=== PATIENT | female | born 1970 | race Caucasian/White ===

== ENCOUNTER → 2021-10-10 | Outpatient (CLI) | payer OTHER | END | disposition home or self-care (01) | LOC: LABWHC1 12:34 | PROVIDERS: ATTEND Family Medicine | DX: Z53.9 Procedure and treatment not carried out, unspecified reason (principal) ==

== ENCOUNTER → 2021-10-10 | Outpatient (CLI) | payer OTHER ==
[2021-10-10 13:52] LABS: INR 0.9 (<1.2); Partial Thromboplastin Time 22.1 sec (22.0-30.0); Prothrombin Time 10.4 sec (9.0-12.0)
[2021-10-10 18:34] LABS: Basophils # (A) 0.03 X 10*3/uL (0.00-0.10); Basophils % (A) 0.3 %; Eosinophils # (A) 0.04 X 10*3/uL (0.04-0.35); Eosinophils % (A) 0.4 %; HCT 43.5 % (37.2-46.3); HGB 14.1 g/dL (12.0-15.0); Immature Grans, Automated 0.4 %; Lymphocytes % (A) 16.5 %; MCH 32.3 pg (27.0-32.0); MCHC 32.4 g/dL (32.0-37.0); MCV 99.5 fL (80.0-97.0); Monocytes # (A) 0.77 X 10*3/uL (0.20-1.00); Monocytes % (A) 7.9 %; NRBC Per 100 WBC 0 /100 WBCS (0.0-0.0); Neutrophils # (A) 7.21 X 10*3/uL (1.80-7.70); Neutrophils % (A) 74.5 %; Platelet Count 239 X 10*3/uL (140-440); RBC 4.37 X 10*6/uL (4.10-5.20); WBC 9.69 X 10*3/uL (4.50-10.00)
[2021-10-10 18:38] LABS: ALT 18 U/L (8-44); AST 17 U/L (13-35); African American GFR (CKD) 98.9 (60.0-200.0); Albumin 4.6 g/dL (3.8-4.9); Albumin/Globulin Ratio 2.19 (1.60-3.17); Alkaline Phosphatase 44 U/L (41-126); BUN/Creat Ratio 17.38 Ratio (12.00-20.00); Blood Urea Nitrogen 13.9 mg/dL (9.0-27.0); Calcium 9.4 mg/dL (8.7-10.3); Carbon Dioxide 19.8 mmol/L (20.0-27.5); Chloride 107 mmol/L (96-109); Chol/HDL Ratio 2.74 Ratio; Globulin 2.1 g/dL (1.6-3.3); Glucose 89 mg/dL (70-110); LDL Cholesterol,Calculated 98.9 mg/dL (0.0-131.0); Non-African American GFR(CKD) 85.4 (60.0-200.0); Potassium 3.7 mmol/L (3.5-5.5); Sodium 140 mmol/L (135-145); Total Protein 6.7 g/dL (6.2-8.2); VLDL Calculation 14.84 mg/dL (5.00-40.00)
[2021-10-10 20:07] LABS: Appearance,Urine Clear (Clear); Bilirubin,Urine Negative (Negative); Blood,Urine Moderate (Negative); Color,Urine Yellow (Yellow); Ketones,Urine 15 mg/dL (Negative); Nitrite,Urine Negative (Negative); Specific Gravity,Urine 1.021 (1.001-1.030); Urobilinogen,Urine 0.2 (0.2,1.0)
[2021-10-10 21:25] LABS: Bacteria,Urine 3+ /HPF (None Seen)
== END | disposition home or self-care (01) ==
LOC: LABPAT 12:32
PROVIDERS: ATTEND Orthopaedic Surgery Orthopaedic Surgery of the Spine
DX: Z01.812 Encounter for preprocedural laboratory examination (principal)
CPT/HCPCS: 80053; 80061; 81001; 85025; 85610; 85730; 86803; 87070; 93005

== ENCOUNTER → 2021-10-14 | Outpatient (CLI) | payer OTHER ==
[2021-10-14 17:03] LABS: Appearance,Urine Clear (Clear); Bilirubin,Urine Negative (Negative); Blood,Urine Small (Negative); Color,Urine Yellow (Yellow); Ketones,Urine Negative (Negative); Nitrite,Urine Negative (Negative); Urobilinogen,Urine 0.2 (0.2,1.0)
[2021-10-14 17:43] LABS: Bacteria,Urine 3+ /HPF (None Seen); Calcium Oxalate Crystals,Urine Present /LPF (None Seen)
--- NOTE | 2021-10-15 06:55 | XR ---
EXAMINATION TYPE: XR chest 2V DATE OF EXAM: 10/14/2021 COMPARISON: None HISTORY: Preop surgery TECHNIQUE: Frontal and lateral views of the chest are obtained. FINDINGS: The lungs are clear. There is no pleural effusion or pneumothorax. The heart size is mildly prominent. The pulmonary vasculature is not congested. The osseous structures are intact IMPRESSION: Mild cardiomegaly with no acute cardiopulmonary disease.
== END | disposition home or self-care (01) ==
LOC: RADXRMAIN 08:10
PROVIDERS: ATTEND Orthopaedic Surgery Orthopaedic Surgery of the Spine
DX: Z01.812 Encounter for preprocedural laboratory examination (principal); N39.0 Urinary tract infection, site not specified; I51.7 Cardiomegaly
CPT/HCPCS: 71046; 81001

== ENCOUNTER 2021-10-16 10:51 | Observation (INO) | payer OTHER ==
[~2021-10-16 10:51] MED LIST: ceFAZolin 1,000 MG in SODIUM CHLORIDE 0.9% IRRIGATIO 1,000 ML IRRIGATION PRN
[2021-10-16] MEDS ORDERED: ONDANSETRON 4 MG/2 ML VIAL ONE (11:47)
[2021-10-16] MEDS ORDERED: LACTATED RINGERS 1,000 ML IV ONE ×3 (12:03→16:50)
[2021-10-16] MEDS ORDERED: LIDOCAINE 1% (10MG/ML) FOR IV START INTRADERMA ONE (12:04)
[2021-10-16] MEDS ORDERED: ONDANSETRON 4 MG/2 ML VIAL IVP ONE ×2 (12:04→17:50)
[2021-10-16] MEDS ORDERED: PROPOFOL 10 MG/ML 20 ML VIAL IV ONE (12:50)
[2021-10-16] MEDS ORDERED: HYDROmorphone (PF) 1 MG/ML ONE (12:50)
[2021-10-16] MEDS ORDERED: ROCURONIUM 10 MG/ML (5 ML VIAL) IV ONE (12:50)
[2021-10-16] MEDS ORDERED: SUCCINYLCHOLINE CHLORIDE 100 MG/5 ML SYR IV ONE (12:50)
[2021-10-16] MEDS ORDERED: MIDAZOLAM 2 MG/2 ML VIAL ONE (12:50)
[2021-10-16] MEDS ORDERED: LIDOCAINE 2% INJ 20 MG/ML (2 ML VIAL) ONE (12:50)
[2021-10-16] MEDS ORDERED: SODIUM CHLORIDE 0.9% IRRIG 1,000 ML BTL IRRIGATION ONE (12:50)
[2021-10-16] MEDS ORDERED: HEPARIN SODIUM,PORCINE 10,000 UNIT/ML 1 ML VIAL ONE (12:50)
[2021-10-16] MEDS ORDERED: KETAMINE 10 MG/ML 20 ML VIAL ONE (12:50)
[2021-10-16] MEDS ORDERED: fentaNYL (PF) 50 MCG/ML 2 ML AMP ONE (12:50)
[2021-10-16] MEDS ORDERED: LEVOFLOXACIN 500MG-D5W PMX 500 MG in DEXTROSE/WATER 1 100ML.BAG IVPB STA (13:00)
[2021-10-16] MEDS ORDERED: traMADol 50 MG TAB PO PRN (13:02)
[2021-10-16] MEDS ORDERED: ACETAMINOPHEN TAB 500 MG TAB PO PRN (13:02)
[2021-10-16] MEDS ORDERED: NON FORMULARY DRUG (Medroxyprogesterone Acetate [Depo-Provera] 150 MG/ML Each) IM SCH (13:15)
[2021-10-16] MEDS ORDERED: BUPIVACAIN-EPI 0.25%-1:200,000 30 ML VIAL SQ ONE (13:27)
[2021-10-16] MEDS ORDERED: GELATIN SPONGE,ABSORB (LARGE) 1 EACH SPONGE MISCELLANE ONE (13:43)
[2021-10-16] MEDS ORDERED: THROMBIN (BOVINE) 5,000 UNIT VIAL MISCELLANE ONE (13:43)
[2021-10-16] MEDS ORDERED: HYDROmorphone 0.5 MG/0.5 ML SYRINGE IVP PRN (17:25)
[2021-10-16] MEDS ORDERED: BENZOCAINE/MENTHOL LOZENG 1 EACH LOZENGE MUCOUS MEM PRN (17:25)
[2021-10-16] MEDS ORDERED: ONDANSETRON 4 MG/2 ML VIAL IVP PRN (17:26)
--- NOTE | 2021-10-16 17:33 | P.OP ---
Date of Procedure: 10/16/21 Preoperative Diagnosis: Dynamic spondylolisthesis L4 5 L5-S1, low back pain, lower extremity radiculopathy, degenerative disc disease, facet arthrosis Postoperative Diagnosis: Same Anesthesia: GETA Pathology: none sent Condition: stable Description of Procedure: DESCRIPTION OF PROCEDURE(S): BRIEF OPERATIVE NOTE Preoperative Diagnosis: Dynamic spondylolisthesis L4 5 L5-S1, low back pain, lower extremity radiculopathy, degenerative disc disease, facet arthrosis Postoperative Diagnosis: Same Procedure: Laminectomy and decompression L4 5 L5-S1 Computer CT navigation aided Minimally invasive Posterior lateral decompression and facet fusion L4 5 L5-S1 Minimally invasive Transforaminal lumbar interbody fusion for a 360 fusion L4 5 L5-S1 Discectomy for decompression L4 5 L5-S1 Placement of interbody graft L4 5 L5-S1 Use of computer navigation for fusion Local autogenous bone grafting Aspiration of bone marrow from the vertebral body pedicle of L4 on the right Use of bone graft extenders Surgeon: Dr. Jha Filenet P8 Developer: Saulo NELSON who is present throughout the entire the case persistence during positioning, dissection, exposure, visualization, and all crucial elements of the case as well as closure. Anesthesia: General anesthesia per Estimated blood loss: Approximately 350 mL, with 137 given back through [employer] Complications: None apparent Components implanted: K2M minimally invasive [place] pedicle screw system withscrews measuring 6.5 mm in diameter to rods one [place] interbody cage as well as an expandable interbody cage ten to 13 mm with 10 mL of osteo amp bio4 bone graft substitute and 30 mL of the BX bone fibers to supplement the local autogenous bone graft and bone marrow aspirate Disposition: To recovery room in good stable condition. OPERATIVE INDICATIONS The patient has had severe issues at their lower extremity in her lower back over the past several years with significant worsening over the past several months. Over the past few months the patient had pain at their back and their lower extremities. The patient is having severe radicular symptoms at their lower extremity with weakness. The patient is having significant pain in their back. They are unable to obtain any comfort. We did aggressive conservative treatment with medications therapy and interventional pain management however thery were not having any relief. The patient also showed evidence of a listhesis with some dynamic instability particularly at L4 5 but also L5-S1. The patient has been through conservative treatment. We discussed various treatment options including surgery, and the patient wishes to proceed with surgery We discussed the risk, patient's alternatives and benefits of surgery including but not limited to, risk of bleeding risk of infection, risk of need for further surgery, risk of decreased, loss of motion, muscle function, malunion nonunion, hardware failure, nerve damage, paralysis, heart attack, blindness and . They understood issues with the current pandemic and the possibility of exposure. OPERATIVE SUMMARY After discussing all the risks, patient alternatives and benefits at length, the patient elected to proceed with surgical intervention, signed informed consent, and presented for their procedure. The patient was seen and examined in the preoperative holding area and the surgical site was marked. The patient was given antibiotics and brought to the operating room. The patient was sedated and intubated by anesthesia in standard fashion. The patient was positioned on to the operating room table in a prone position on the appropriate frame which was well-padded and well molded. We were careful to pad any bony prominences and pressure points. We were careful to maintain the patient's cervical spine and good neutral alignment and position throughout. The patient was prepped and draped in a normal standard fashion. An appropriate timeout and keystone protocol performed. We were able to proceed with the surgery. The local wound area was infiltrated with local anesthetic. Over the right iliac crest I was able to make small stab incisions and establish a guidepin screw fixation to the iliac crest 2. I was able place the computer referencing device over the guidepins to establish an appropriate reference point for the Ziem CT navigation. We then were able to place patient in an appropriate drape and do a navigation spin for visualization and 3-D reconstruction of the lumbar spine. I was able utilize C-arm guidance and navigation to establish appropriate position over the pedicles bilaterally at the appropriate levels at L4-L5 and S1 . With the appropriate levels confirmed was able to make small incisions over the appropriate pedicle sites bilaterally. Utilizing the computer navigation device I was able to establish b herber landmarks at the right iliac crest for a bony reference point for the navigation device. I was able to establish a Jamshidi needle over the lateral aspect of the pedicle and advanced the trocar into the pedicle being careful not to breech superiorly inferiorly medially or laterally using computer navigation device. Position was confirmed regularly with AP and lateral images on C-arm and with the computer navigation device at the appropriate levels bilaterally. I was able to establish the trocar into the pedicle appropriately into the posterior aspect of the vertebral body bilaterally at the appropriate levels. This was done at each of the pedicle positions and each of the vertebrae. At the superior vertebrae of L4 on the right I was able to take approximately 25 mL of bone aspiration for use later in the case to supplement the allograft and autograft bone. I was able place the guidewire into the trocar and into the vertebral body appropriately under C-arm guidance. Dissection was taken down over the wire to the appropriate starting position for the screw placed. The appropriate length screw was chosen, threaded over the guidewire and screwed appropriately into the pedicle and vertebral body under C-arm guidance in excellent alignment and position with good bony purchase. This is done at each of the screw sites at the appropriate levels at L4-L5 and S1. With the screws intact I extended the incision to connect the screw hole sites on the most symptomatic side on the right. I dissected down to establish access over the pars and lamina to the base of the spinous process. I was able to expose the facet joint. The capsule the facet was taken down and showed some facet arthrosis at the joint. I was able to use a combination of curettes and Kerrison rongeurs and a high-speed drill to take down the facet joint and do a facetectomy. I was able get excellent foraminal decompression and central decompression with undermining across midline to perform a laminectomy centrally and contralaterally. As able get good central decompression. The ligamentum flavum was taken down to further decompress centrally and at bilateral neural foramen. I was able to expose the disc space and visualize the traversing nerve root. Note was made of some disc protrusion and disc herniation that was abutting the traversing nerve root at the level causing further compression of the nerve root. I was able to establish a annulotomy at the appropriate level protecting soft tissue and neural structures. Note was made of some disc desiccation at the disc. I performed a complete discectomy with accommodation of curettes and rasps and scrapers. I was able get good endplate preparation at the disc space. I sized for the appropriate size interbody spacer protecting the soft tissue and neural structures. The wound was copiously irrigated and suctioned dry. There is no evidence of any dural tear or leak. I was able to pack the disc space with local autogenous bone graft as well as a small amount of bone graft which was also placed into the interbody cage itself. Protecting the soft tissue structures and neural structures I was able place the interbody cage in good alignment and good position with good fit and fill at the interbody space. Position was confirmed with C-arm guidance. This was done similarly at both L5-S1 and the L4 5. He is a solid cage at L5-S1 and an expandable cage and L4 5. I was able get good reduction of the listhesis as well. Good hemostasis maintained. There is no evidence of any dural tear or leak. The wound was irrigated and suctioned dry. With the hardware intact, intraoperative C-arm imaging was again taken which showed good alignment and position of the hardware at the appropriate levels. We were then able to measure, contour and place the rods and appropriate hardware bilaterally. I was able to place capcrews, tighten them down, and torque them with the torque screwdriver appropriately. With this intact I was able to place the local autogenous bone graft with additional bone graft enhancer as necessary into the posterior lateral gutters over the decorticated transverse processes and facet joints on the contralateral side. The remainder of the bone graft was placed over the facet joint on the contralateral side after taking down the facet joint capsule. With the bone graft intact, a stable construct, and good decompression at the appropriate levels, we were able to proceed with closure. Good hemostasis was maintained. There is no evidence of dural tear or leak. The fascia was closed for a watertight closure. he subcuticular tissue was closed with absorbable suture. The wound was cleaned and dried and dressed with the appropriate dressing. The drapes were broken down. The patient was gently rolled back onto their hospital bed being careful to maintain their cervical spine and good neutral alignment and position. They were woken up by anesthesia, extubated, and brought to the recovery room in good stable condition. The patient will be admitted to the hospital for appropriate postoperative care, medical management and monitoring. We will continue to follow them closely a bout the postoperative course.
[2021-10-16] MEDS ORDERED: HYDROmorphone 0.5 MG/0.5 ML SYRINGE IVP ONE ×3 (17:52→18:05)
[2021-10-16] MEDS: HYDROmorphone 1 MG/ML 1 ML SYRINGE IVP PRN (19:54)
[2021-10-16] MEDS: SODIUM CHLORIDE 0.9% 1,000 ML IV SCH (21:15)
--- NOTE | 2021-10-16 21:15 | FL ---
EXAMINATION TYPE: FL guidance operating room DATE OF EXAM: 10/16/2021 CLINICAL HISTORY: Low back pain. TECHNIQUE: Fluoroscopy. Intraoperative 2 views lumbar spine. COMPARISON: None. FINDINGS: Fluoroscopic guidance was provided during lumbar fusion procedure performed by Dr. Jha. A total of 13 seconds of fluoroscopic time was utilized during the procedure and 2 spot intraoperati ve images are acquired. Intraoperative images obtained show placement of posterior interpedicular rods and screws bilaterally at L4-S1 levels. Images are underpenetrated making evaluation suboptimal. IMPRESSION: As Above.
[2021-10-16] MEDS: HYDROcodone/APAP 5-325MG 1 EACH TAB PO PRN (21:23)
[2021-10-16] MEDS: diazePAM 5 MG TAB PO PRN (21:24)
--- NOTE | 2021-10-16 21:46 | P.CONS ---
History of Present Illness - Reason for Consult Consult date: 10/16/21 Medical management Requesting physician: Enma Jha - Chief Complaint Back pain - History of Present Illness This is a pleasant 51-year-old patient follows with Dr. Willow argueta. Chronic stable medical conditions include history of blood clot in the right thigh for which patient takes anticoagulation, chronic lumbar pain. Arthritis. Patient's had lower backs pain symptoms for close to 3 years. Does radiate down the right leg. No bowel or urine symptoms. Patient's tried conservative measures including epidural pain procedures. Patient underwent laminectomy and decompression and discectomy and L4-L5/L5-S1. Postprocedure patient laying in bed. Cook catheter. Pain medications in place. No nausea vomiting. Xarelto is to be resumed from tomorrow morning. Review of systems: GEN.: None EYES: None HEENT: None NECK: None RESPIRATORY: None CARDIOVASCULAR: None GASTROINTESTINAL: None GENITOURINARY: Cook MUSCULOSKELETAL: As above LYMPHATICS: None HEMATOLOGICAL: None PSYCHIATRY: None NEUROLOGICAL: None Past medical history to include: DVD, osteoarthritis, blood clot of the right thigh, Social history: Alcohol occasionally. No smoking. . 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 Family history: DVT Physical examination: VITAL SIGNS: 97.5, 63, 16, 129-77, 100% on 2 L GENERAL: BMI 30.1, laying in bed not in distress. EYES: Pupils equal. Conjunctiva normal. HEENT: External appearance of nose and ears normal, oral cavity grossly normal. NECK: JVD not raised; masses not palpable. HEART: First and second heart sounds are normal; no edema. LUNGS: Respiratory rate normal; clear to auscultation. ABDOMEN: Soft, nontender, liver spleen not palpable, no masses palpable.. Cook catheter PSYCH: Alert and oriented x3; mood and affect normal. MUSCULOSKELETAL:No Clubbing/cyanosis;muscles-grossly intact. Dressing over incision site NEUROLOGICAL: Cranial nerves grossly intact; no facial asymmetry, power and sensation grossly intact. LYMPHATICS: No lymph nodes palpable in the axilla and neck Assessment and plan: -Dynamic spondylolisthesis L4-L5/L5-S1/low back pain/lower extremity radiculopathy/DJD/facet arthrosis. Followed by laminectomy and decompression discectomy IV Ancef for infection prophylaxis. [place] 5 for pain control/Dilaudid when necessary for pain control. -Chronic right thigh DVT Resume xarelto in the morning as per Dr. Cool -Obesity BMI 30.1 Weight loss measures Home medications and resume. Xarelto will start tomorrow morning. Venodyne boots. Pain control in place. IV fluids. Diet advanced as tolerated. Care was discussed with the patient. Questions answered. Thank you Dr. Jha Past Medical History Past Medical History: Deep Vein Thrombosis (DVT), Musculoskeletal Disorder, Osteoarthritis (OA) Additional Past Medical History / Comment(s): blood clots right thigh History of Any Multi-Drug Resistant Organisms: None Reported Additional Past Surgical History / Comment(s): epidural pain procedures Past Anesthesia/Blood Transfusion Reactions: Previous Problems w/ Anesthesia Additional Past Anesthesia/Blood Transfusion Reaction / Comm: headache after epidural pain procedure Smoking Status: Never smoker - Past Family History Father Family Medical History: Deep Vein Thrombosis (DVT) Medications and Allergies Home Medications Medication Instructions Recorded Confirmed Type Acetaminophen [Tylenol Extra 500 mg PO Q6H PRN 10/12/21 10/16/21 History Strength] Medroxyprogesterone Acetate 150 mg IM Q90D 10/12/21 10/16/21 History [Depo-Provera] Rivaroxaban [Xarelto] 20 mg PO DAILY 10/12/21 10/16/21 History traMADol HCL [Ultram] 50 mg PO Q6HR PRN 10/12/21 10/16/21 History Allergies Allergy/AdvReac Type Severity Reaction Status Date / Time Penicillins AdvReac Unknown Verified 10/16/21 11:44 Childhood Physical Exam Vitals: Vital Signs Temp Pulse Pulse Resp BP BP Pulse Ox 10/16/21 20:15 100 10/16/21 19:52 97.5 F L 63 16 129/77 100 10/16/21 18:46 98.1 F 66 14 131/72 100 10/16/21 17:50 59 L 16 127/73 100 10/16/21 17:35 96.9 F L 60 16 127/73 100 10/16/21 11:43 97.3 F L 76 16 139/79 96 Intake and Output 10/16/21 10/16/21 10/16/21 06:59 14:59 22:59 Intake Total 2050 100 Output Total 5 Balance 2050 Intake: IV 2050 100 Output: Urine 525 Estimated Blood Loss 350 Other: Weight 95.3 kg
--- NOTE | 2021-10-16 23:33 | XR ---
EXAMINATION TYPE: XR lumbar spine 2 or 3V DATE OF EXAM: 10/16/2021 CLINICAL HISTORY: Lumbar fusion TECHNIQUE: Fluoroscopic-guided lumbar fusion COMPARISON: None. FINDINGS: Fluoroscopic guidance was provided during the procedure. A total of 13 seconds of fluorosc opic time was utilized during the procedure and 2 spot images were acquired. IMPRESSION: As Above.
[2021-10-17] MEDS: HYDROmorphone 1 MG/ML 1 ML SYRINGE IVP PRN ×4 (02:21→17:30)
[2021-10-17] MEDS: SODIUM CHLORIDE 0.9% 1,000 ML IV SCH (05:21)
[2021-10-17] MEDS: HYDROcodone/APAP 5-325MG 1 EACH TAB PO PRN ×4 (05:23→21:24)
[2021-10-17] MEDS: diazePAM 5 MG TAB PO PRN ×2 (05:23→12:19)
[2021-10-17] MEDS: RIVAROXABAN 20 MG TAB PO SCH (09:07)
[2021-10-17] MEDS: CYCLOBENZAPRINE 10 MG TAB PO PRN ×2 (09:09→15:52)
[2021-10-17] MEDS: SENNOSIDES-DOCUSATE SODIUM 1 EACH TAB PO SCH (09:09)
[2021-10-17 09:30] LABS: African American GFR (CKD) 100.5 (60.0-200.0); Anion Gap 10.2 mmol/L (10.00-18.00); BUN/Creat Ratio 12.53 Ratio (12.00-20.00); Blood Urea Nitrogen 9.9 mg/dL (9.0-27.0); Calcium 8.4 mg/dL (8.7-10.3); Carbon Dioxide 22.7 mmol/L (20.0-27.5); Non-African American GFR(CKD) 86.7 (60.0-200.0); Potassium 3.8 mmol/L (3.5-5.5)
[2021-10-17 10:04] LABS: Basophils # (A) 0.02 X 10*3/uL (0.00-0.10); Basophils % (A) 0.2 %; Eosinophils # (A) 0.03 X 10*3/uL (0.04-0.35); Eosinophils % (A) 0.3 %; HCT 35.8 % (37.2-46.3); HGB 11.6 g/dL (12.0-15.0); Immature Grans, Automated 0.5 %; Lymphocytes # (A) 1.44 X 10*3/uL (0.90-5.00); Lymphocytes % (A) 15.2 %; MCH 32.4 pg (27.0-32.0); MCHC 32.4 g/dL (32.0-37.0); Mean Platelet Volume 9.6 fL (9.5-12.2); Monocytes # (A) 0.99 X 10*3/uL (0.20-1.00); Monocytes % (A) 10.5 %; NRBC Per 100 WBC 0 /100 WBCS (0.0-0.0); Neutrophils # (A) 6.94 X 10*3/uL (1.80-7.70); Neutrophils % (A) 73.3 %; Platelet Count 175 X 10*3/uL (140-440); RBC 3.58 X 10*6/uL (4.10-5.20); RDW 12.8 % (11.5-14.5); WBC 9.47 X 10*3/uL (4.50-10.00)
--- NOTE | 2021-10-17 11:19 | P.PN ---
Progress Note - Text Progress Note Date: 10/17/21 Orthopedic Spine History of present illness: Patient is a pleasant 51-year-old female who is seen and examined at the bedside following posterior lateral decompression and fusion performed yesterday. Patient states they are doing well post operatively. She had a rough time last night but has been improving so far today. She has been able to ambulate to the restroom and ambulate the hallways. Her lower extremity radiculopathy she was experiencing prior to surgical intervention has had significant improvement. She does have some increased low back pain at the surgical sites of her lumbar spine. She continues to receive IV and oral medications for pain control. Currently does not complain of nausea, vomiting, fever, or chills. Patient states pain has been adequately controlled. Patient is eating and voiding freely without difficulty. Her Cook catheter has been discontinued. Patient is ambulating with assistance of a walker Physical Exam Lumbar Fusion: Status post surgical day number 1 Patient is awake, alert, and oriented 3 Vital signs stable Good chest excursion with deep inspiration and expiration Abdomen soft nontender Dorsiflexion, plantarflexion, and extensor hallucis longus positive sustained bilaterally No signs or symptoms of DVT; pneumatic cuffs not currently intact bilateral lower extremities Optifoam dressings are clean, dry, and intact over the lumbar spine and right iliac crest; no erythema, purulence, or signs of infection Neurovascularly intact bilaterally lower extremities Patient is able to ambulate in the room with the assistance of a walker while I am present Assessment: Status post L4-5 and L5-S1 minimally invasive posterior lateral decompression and fusion with transforaminal lumbar interbody fusion L4-5 and L5-S1 dynamic spondylolisthesis Low back pain Lower extremity radiculopathy, improved postoperatively Lumbar and lumbosacral degenerative disc disease Lumbar and lumbosacral facet arthrosis History of blood clots Plan: 1. Ambulate as tolerated; work with Physical Therapy to increase mobilization 2. Continue pain control with IV and oral medications; will plan to begin weaning the patient off of IV narcotic medication in anticipation for discharge home in the next 1-2 days 3. Dressings to remain intact with Optifoam; patient may shower with dressings intact 4. Medical management can continue to manage patient for patient's other medical diagnoses 30 history of blood clots 5. We will continue to follow the patient closely; depending on the patient's progress, we may plan for discharge home as early as tomorrow, 10/18/2021 6. Patient can follow-up with Saulo Kerr PA-C or Dr. Ye Jha at [facility] in 2-3 weeks following discharge
--- NOTE | 2021-10-17 16:02 | P.PN ---
Progress Note - Text Progress Note Date: 10/17/21 - Chief Complaint Back pain Hospital course This is a pleasant 51-year-old patient follows with Dr. Willow argueta. Chronic stable medical conditions include history of blood clot in the right thigh for which patient takes anticoagulation, chronic lumbar pain. Arthritis. Patient's had lower backs pain symptoms for close to 3 years. Does radiate down the right leg. No bowel or urine symptoms. Patient's tried conservative measures including epidural pain procedures. Patient underwent laminectomy and decompression and discectomy and L4-L5/L5-S1. Postprocedure patient laying in bed. Cook catheter. Pain medications in place. No nausea vomiting. Xarelto is to be resumed from tomorrow morning. October 17: Up in a recliner. Did walk walk a bit. Significant pain in her lower back. No radiation. Did tolerate her breakfast. Past some flatus. Active Medications Acetaminophen (Acetaminophen Tab 500 Mg Tab) 500 mg PO Q6H PRN PRN Reason: MILD Pain Stop: 11/15/21 13:03 Hydrocodone Bitart/Acetaminophen (Hydrocodone/Apap 5-325mg 1 Each Tab) 1 each PO Q4HR PRN PRN Reason: Pain Stop: 11/15/21 17:26 Last Admin: 10/17/21 15:52 Dose: 1 each Benzocaine/Menthol (Benzocaine/Menthol Lozeng 1 Each Lozenge) 1 each MUCOUS MEM Q4HR PRN PRN Reason: Sore Throat Stop: 11/15/21 17:26 Cyclobenzaprine HCl (Cyclobenzaprine 10 Mg Tab) 10 mg PO TID PRN PRN Reason: Muscle Spasm Stop: 11/15/21 17:27 Last Admin: 10/17/21 15:52 Dose: 10 mg Diazepam (Diazepam 5 Mg Tab) 5 mg PO QID PRN PRN Reason: Anxiety Stop: 11/15/21 17:26 Last Admin: 10/17/21 12:19 Dose: 5 mg Hydromorphone HCl (Hydromorphone 1 Mg/Ml 1 Ml Syringe) 1 mg IVP Q4HR PRN PRN Reason: Pain Stop: 11/15/21 17:26 Last Admin: 10/17/21 12:19 Dose: 1 mg Hydromorphone HCl (Hydromorphone 0.5 Mg/0.5 Ml Syringe) 0.5 mg IVP Q4HR PRN PRN Reason: Pain Stop: 11/15/21 17:26 Ondansetron HCl (Ondansetron 4 Mg/2 Ml Vial) 4 mg IVP Q8HR PRN PRN Reason: Nausea And Vomiting Stop: 11/15/21 17:27 Rivaroxaban (Rivaroxaban 20 Mg Tab) 20 mg PO DAILY HAYDEN; Protocol Stop: 11/16/21 09:01 Last Admin: 10/17/21 09:07 Dose: 20 mg Senna/Docusate Sodium (Sennosides-Docusate Sodium 1 Each Tab) 1 each PO DAILY HAYDEN Stop: 11/16/21 09:01 Last Admin: 10/17/21 09:09 Dose: 1 each Tramadol HCl (Tramadol 50 Mg Tab) 50 mg PO Q6HR PRN PRN Reason: Pain Stop: 11/15/21 13:03 Past medical history to include: DVD, osteoarthritis, blood clot of the right thigh, Social history: Alcohol occasionally. No smoking. . 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 Family history: DVT Physical examination: VITAL SIGNS: 98.7, 79, 16, 122/80, 99% on 2 L GENERAL: Sitting up in a recliner, comfortable EYES: Pupils equal. Conjunctiva normal. HEENT: External appearance of nose and ears normal, oral cavity grossly normal. NECK: JVD not raised; masses not palpable. HEART: First and second heart sounds are normal; no edema. LUNGS: Respiratory rate normal; clear to auscultation. ABDOMEN: Soft, nontender, liver spleen not palpable, no masses palpable.. Cook catheter PSYCH: Alert and oriented x3; mood and affect normal. MUSCULOSKELETAL:No Clubbing/cyanosis;muscles-grossly intact. Dressing over incision site NEUROLOGICAL: Cranial nerves grossly intact; no facial asymmetry, power and sensation grossly intact. INVESTIGATIONS, reviewed in the clinical context: White count 9.4 hemoglobin 11.6 platelets 175 progression 3.8 creatinine 0.8 Previous labs: Hemoglobin 14.1 on 10/10/2021 Assessment and plan: -Dynamic spondylolisthesis L4-L5/L5-S1/low back pain/lower extremity radiculopathy/DJD/facet arthrosis. Followed by laminectomy and decompression discectomy IV Ancef for infection prophylaxis. [place] 5 for pain control/Dilaudid when necessary for pain control. -Chronic right thigh DVT Resume xarelto in the morning as per Dr. Cool -Obesity BMI 30.1 Weight loss measures -Acute postprocedure blood loss anemia expected from surgery Add ferrous sulfate Xarelto started. Add ferrous sulfate.. Venodyne boots. Pain control in place. Increase activity as tolerated. Discussed with patient. Thank you Dr. Jha
[2021-10-17] MEDS: FERROUS SULFATE 325 MG TAB PO SCH (17:31)
[2021-10-18] MEDS: HYDROmorphone 1 MG/ML 1 ML SYRINGE IVP PRN ×2 (02:17→19:43)
[2021-10-18] MEDS: RIVAROXABAN 20 MG TAB PO SCH (07:29)
[2021-10-18] MEDS: diazePAM 5 MG TAB PO PRN ×2 (07:29→14:14)
[2021-10-18] MEDS: SENNOSIDES-DOCUSATE SODIUM 1 EACH TAB PO SCH (07:29)
[2021-10-18] MEDS: HYDROcodone/APAP 5-325MG 1 EACH TAB PO PRN ×2 (07:29→14:14)
[2021-10-18] MEDS: FERROUS SULFATE 325 MG TAB PO SCH ×2 (07:29→17:44)
--- NOTE | 2021-10-18 08:45 | P.PN ---
Progress Note - Text Progress Note Date: 10/18/21 Orthopedic Spine History of present illness: Patient is a pleasant 51-year-old female who is seen and examined at the bedside following posterior lateral decompression and fusion performed Saturday. She states she is doing okay post operatively. She had some difficulty with pain control and sleeping in the evening which is better throughout the day. She does have difficulty getting out of bed independently. She has been able to ambulate to the restroom and ambulate the hallways. Her lower extremity radiculopathy she was experiencing prior to surgical intervention has had significant improvement. She does have some increased low back pain at the surgical sites of her lumbar spine. She continues to receive IV and oral medications for pain control. Currently does not complain of nausea, vomiting, fever, or chills. Patient states pain has been adequately controlled. Patient is eating and voiding freely without difficulty. Her Cook catheter has been discontinued. Patient is ambulating with assistance of a walker Physical Exam Lumbar Fusion: Status post surgical day number 2 Patient is awake, alert, and oriented 3 Vital signs stable Good chest excursion with deep inspiration and expiration Abdomen soft nontender Dorsiflexion, plantarflexion, and extensor hallucis longus positive sustained bilaterally No signs or symptoms of DVT; pneumatic cuffs not currently intact bilateral lower extremities Optifoam dressings are clean, dry, and intact over the lumbar spine and right iliac crest; no erythema, purulence, or signs of infection Neurovascularly intact bilaterally lower extremities Patient is able to ambulate in the room with the assistance of a walker while I am present Assessment: Status post L4-5 and L5-S1 minimally invasive posterior lateral decompression and fusion with transforaminal lumbar interbody fusion L4-5 and L5-S1 dynamic spondylolisthesis Low back pain Lower extremity radiculopathy, improved postoperatively Lumbar and lumbosacral degenerative disc disease Lumbar and lumbosacral facet arthrosis History of blood clots Plan: 1. Ambulate as tolerated; work with Physical Therapy to increase mobilization 2. Continue pain control with IV and oral medications; will plan to begin weaning the patient off of IV narcotic medication in anticipation for discharge home tomorrow, 10/19/2021 3. Dressings to remain intact with Optifoam; patient may shower with dressings intact 4. Medical management can continue to manage patient for patient's other medical diagnoses 30 history of blood clots 5. We will continue to follow the patient closely; depending on the patient's progress, we may plan for discharge home as early as tomorrow, 10/18/2021 6. Patient can follow-up with Saulo Kerr PA-C or Dr. Ye Jha at [facility] in 2-3 weeks following discharge
[2021-10-18] MEDS ORDERED: LACTULOSE 20 GM/30 ML CUP PO ONE (14:00)
--- NOTE | 2021-10-18 14:00 | P.PN ---
Progress Note - Text Progress Note Date: 10/18/21 - Chief Complaint Back pain Hospital course This is a pleasant 51-year-old patient follows with Dr. Willow argueta. Chronic stable medical conditions include history of blood clot in the right thigh for which patient takes anticoagulation, chronic lumbar pain. Arthritis. Patient's had lower backs pain symptoms for close to 3 years. Does radiate down the right leg. No bowel or urine symptoms. Patient's tried conservative measures including epidural pain procedures. Patient underwent laminectomy and decompression and discectomy and L4-L5/L5-S1. Postprocedure patient laying in bed. Cook catheter. Pain medications in place. No nausea vomiting. Xarelto is to be resumed from tomorrow morning. October 17: Up in a recliner. Did walk walk a bit. Significant pain in her lower back. No radiation. Did tolerate her breakfast. Passed some flatus. October 18: Did walk with assistance. Increase in. Of the surgical site. No BM. Have asked her to take a laxative today needed. Oral intake fair. No nausea vomiting. Active Medications Acetaminophen (Acetaminophen Tab 500 Mg Tab) 500 mg PO Q6H PRN PRN Reason: MILD Pain Stop: 11/15/21 13:03 Hydrocodone Bitart/Acetaminophen (Hydrocodone/Apap 5-325mg 1 Each Tab) 1 each PO Q4HR PRN PRN Reason: Pain Stop: 11/15/21 17:26 Last Admin: 10/18/21 07:29 Dose: 1 each Benzocaine/Menthol (Benzocaine/Menthol Lozeng 1 Each Lozenge) 1 each MUCOUS MEM Q4HR PRN PRN Reason: Sore Throat Stop: 11/15/21 17:26 Cyclobenzaprine HCl (Cyclobenzaprine 10 Mg Tab) 10 mg PO TID PRN PRN Reason: Muscle Spasm Stop: 11/15/21 17:27 Last Admin: 10/17/21 15:52 Dose: 10 mg Diazepam (Diazepam 5 Mg Tab) 5 mg PO QID PRN PRN Reason: Anxiety Stop: 11/15/21 17:26 Last Admin: 10/18/21 07:29 Dose: 5 mg Ferrous Sulfate (Ferrous Sulfate 325 Mg Tab) 325 mg PO BID-W/MEALS HAYDEN Last Admin: 10/18/21 07:29 Dose: 325 mg Hydromorphone HCl (Hydromorphone 1 Mg/Ml 1 Ml Syringe) 1 mg IVP Q4HR PRN PRN Reason: Pain Stop: 11/15/21 17:26 Last Admin: 10/18/21 02:17 Dose: 1 mg Hydromorphone HCl (Hydromorphone 0.5 Mg/0.5 Ml Syringe) 0.5 mg IVP Q4HR PRN PRN Reason: Pain Stop: 11/15/21 17:26 Ondansetron HCl (Ondansetron 4 Mg/2 Ml Vial) 4 mg IVP Q8HR PRN PRN Reason: Nausea And Vomiting Stop: 11/15/21 17:27 Rivaroxaban (Rivaroxaban 20 Mg Tab) 20 mg PO DAILY HAYDEN; Protocol Stop: 11/16/21 09:01 Last Admin: 10/18/21 07:29 Dose: 20 mg Senna/Docusate Sodium (Sennosides-Docusate Sodium 1 Each Tab) 1 each PO DAILY HAYDEN Stop: 11/16/21 09:01 Last Admin: 10/18/21 07:29 Dose: 1 each Tramadol HCl (Tramadol 50 Mg Tab) 50 mg PO Q6HR PRN PRN Reason: Pain Stop: 11/15/21 13:03 Past medical history to include: DVD, osteoarthritis, blood clot of the right thigh, Social history: Alcohol occasionally. No smoking. . 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 Family history: DVT Physical examination: VITAL SIGNS: 98.4, 93, 16, 115/77, 98% on room air GENERAL: Sitting up , comfortable EYES: Pupils equal. Conjunctiva normal. HEENT: External appearance of nose and ears normal, oral cavity grossly normal. NECK: JVD not raised; masses not palpable. HEART: First and second heart sounds are normal; no edema. LUNGS: Respiratory rate normal; clear to auscultation. ABDOMEN: Soft, nontender, liver spleen not palpable, no masses palpable.. Cook catheter PSYCH: Alert and oriented x3; mood and affect normal. MUSCULOSKELETAL:No Clubbing/cyanosis;muscles-grossly intact. Dressing over incision site INVESTIGATIONS, reviewed in the clinical context: White count 9.4 hemoglobin 11.6 platelets 175 progression 3.8 creatinine 0.8 Previous labs: Hemoglobin 14.1 on 10/10/2021 Assessment and plan: -Dynamic spondylolisthesis L4-L5/L5-S1/low back pain/lower extremity radiculopathy/DJD/facet arthrosis. Followed by laminectomy and decompression discectomy IV Ancef for infection prophylaxis. [place] 5 for pain control/Dilaudid when necessary for pain control. -Chronic right thigh DVT Xarelto resumed -Acute constipation from pain/decreased activity Laxative as needed -Obesity BMI 30.1 Weight loss measures -Acute postprocedure blood loss anemia expected from surgery Add ferrous sulfate Xarelto , ferrous sulfate.. Venodyne boots. Pain control in place. Increase activity as tolerated. Lactulose if needed Thank you Dr. Jha
[2021-10-19] MEDS: HYDROcodone/APAP 5-325MG 1 EACH TAB PO PRN ×3 (00:06→12:34)
[2021-10-19] MEDS: diazePAM 5 MG TAB PO PRN ×2 (00:09→07:51)
[2021-10-19] MEDS: FERROUS SULFATE 325 MG TAB PO SCH (07:51)
[2021-10-19] MEDS: SENNOSIDES-DOCUSATE SODIUM 1 EACH TAB PO SCH (07:51)
[2021-10-19] MEDS: RIVAROXABAN 20 MG TAB PO SCH (07:51)
--- NOTE | 2021-10-19 08:21 | P.DS ---
Providers Date of admission: 10/17/21 08:24 Attending physician: Enma Jha Consults: 10/16/21 18:37 Consult Physician Routine Consulting Provider: Moise العراقي Consult Reason/Comments: Medical Management Do you want consulting provider notified?: Yes Primary care physician: Stated None Hospital Course: The patient presented on the day of admission as per their operative note. She had significant spinal stenosis with lower extremity radiculopathy underwent minimally invasive decompression and fusion as per her operative note. She feels her legs have made improvement. She has significant soreness at her back but she feels that is improving as the days pass. She denies any chest pain shortness of breath. Denies any nausea or vomiting. Physical Exam The incision site is clean dry and intact. There is no erythema no drainage. There is no purulence no evidence of infection. Her back is clear without any evidence of infection. Abdomen soft and nontender. Chest has good excursion with deep inspiration and expiration. The patient has active and passive range of motion intact at the upper and lower extremities. There is no acute change in neurologic status. She has sustained dorsal flexion plantar flexion and EHL intact. Hospital Course Postoperative day #3 status post minimally invasive decompression and fusion at lumbar spine for her spinal stenosis with lower extremity radiculopathy. The patient has been making good progress postoperatively. They have completed the prophylactic antibiotics without any signs or symptoms of infection. The patient has been able to advance their diet, and is tolerating diet adequately. The pain was initially controlled with IV medications and is now controlled appropriately with oral medications. The patient has been able to increase their mobilization. The patient has progressed appropriately. I think they are in good stable condition for discharge today. They will be sent home with appropriate prescriptions. I answered their questions to the best of my ability in a language that they can understand and they are agreeable with the plan. They will follow up as directed In approximately 2 weeks or sooner if she is having problems. Patient Condition at Discharge: Good Plan - Discharge Summary Discharge Rx Participant: No New Discharge Prescriptions: New Sennosides-Docusate Sodium [Senokot-S] 1 tab PO BID PRN #60 tablet PRN Reason: Constipation Cyclobenzaprine [Flexeril] 10 mg PO TID PRN #60 tab PRN Reason: Muscle Spasm HYDROcodone/APAP 5-325MG [[place] 5] 1 each PO Q4HR PRN #42 tab PRN Reason: Pain No Action Rivaroxaban [Xarelto] 20 mg PO DAILY traMADol HCL [Ultram] 50 mg PO Q6HR PRN PRN Reason: Pain Medroxyprogesterone Acetate [Depo-Provera] 150 mg IM Q90D Acetaminophen [Tylenol Extra Strength] 500 mg PO Q6H PRN PRN Reason: Pain Discharge Medication List Acetaminophen [Tylenol Extra Strength] 500 mg PO Q6H PRN 10/12/21 [History] Medroxyprogesterone Acetate [Depo-Provera] 150 mg IM Q90D 10/12/21 [History] Rivaroxaban [Xarelto] 20 mg PO DAILY 10/12/21 [History] traMADol HCL [Ultram] 50 mg PO Q6HR PRN 10/12/21 [History] Cyclobenzaprine [Flexeril] 10 mg PO TID PRN #60 tab 10/18/21 [Rx] HYDROcodone/APAP 5-325MG [[place] 5] 1 each PO Q4HR PRN #42 tab 10/18/21 [Rx] Sennosides-Docusate Sodium [Senokot-S] 1 tab PO BID PRN #60 tablet 10/18/21 [Rx] Follow up Appointment(s)/Referral(s): Saulo Kerr, [facility] [PH[employer]] - 2 Weeks (Patient may follow-up with Saulo Kerr PA-C or Dr. Ye Jha at [facility] in 2-3 weeks following discharge. ) Activity/Diet/Wound Care/Special Instructions: 1. Patient may shower with Optifoam dressing intact. 2. Patient may remove Optifoam dressing in 3 days and shower without a dressing at that time. 3. Patient should refrain from driving until at least after their first follow- up appointment in the office. 4. Patient should avoid excessive bending, twisting, lifting; avoid overhead lifting; no lifting greater than 10 pounds 5. Take medications as prescribed 6. Patient should avoid anti-inflammatory medications over the next 6 weeks postoperatively 7. Do not soak in tub Discharge Disposition: HOME SELF-CARE
[2021-10-19 09:11] VITALS: RESP 18
[2021-10-19 11:59] VITALS: BP 103/69; PULSE 87; TEMP 97.6
[2021-10-19] MEDS: CYCLOBENZAPRINE 10 MG TAB PO PRN (12:34)
--- NOTE | 2021-10-19 17:17 | P.PN ---
Progress Note - Text Progress Note Date: 10/19/21 - Chief Complaint Back pain Hospital course This is a pleasant 51-year-old patient follows with Dr. Willow argueta. Chronic stable medical conditions include history of blood clot in the right thigh for which patient takes anticoagulation, chronic lumbar pain. Arthritis. Patient's had lower backs pain symptoms for close to 3 years. Does radiate down the right leg. No bowel or urine symptoms. Patient's tried conservative measures including epidural pain procedures. Patient underwent laminectomy and decompression and discectomy and L4-L5/L5-S1. Postprocedure patient laying in bed. Cook catheter. Pain medications in place. No nausea vomiting. Xarelto is to be resumed from tomorrow morning. October 17: Up in a recliner. Did walk walk a bit. Significant pain in her lower back. No radiation. Did tolerate her breakfast. Passed some flatus. October 18: Did walk with assistance. Increase in. Of the surgical site. No BM. Have asked her to take a laxative today needed. Oral intake fair. No nausea vomiting. October 19: Pain better at the operative site. Did ambulate. Had a bowel movement. Oral intake fair. Discussed with patient. Current medications reviewed Past medical history to include: DVD, osteoarthritis, blood clot of the right thigh, Social history: Alcohol occasionally. No smoking. . Has a family business of [employer]. Family history: DVT Physical examination: VITAL SIGNS: 97.6, 87, 18, 103/69, 99% room air GENERAL: Sitting up , comfortable EYES: Pupils equal. Conjunctiva normal. HEENT: External appearance of nose and ears normal, oral cavity grossly normal. NECK: JVD not raised; masses not palpable. HEART: First and second heart sounds are normal; no edema. LUNGS: Respiratory rate normal; clear to auscultation. ABDOMEN: Soft, nontender, liver spleen not palpable, no masses palpable.. Cook catheter PSYCH: Alert and oriented x3; mood and affect normal. MUSCULOSKELETAL:No Clubbing/cyanosis;muscles-grossly intact. Dressing over incision site INVESTIGATIONS, reviewed in the clinical context: White count 9.4 hemoglobin 11.6 platelets 175 progression 3.8 creatinine 0.8 Previous labs: Hemoglobin 14.1 on 10/10/2021 Assessment and plan: -Dynamic spondylolisthesis L4-L5/L5-S1/low back pain/lower extremity radiculopathy/DJD/facet arthrosis. Followed by laminectomy and decompression discectomy IV Ancef for infection prophylaxis. [place] 5 for pain control/Dilaudid when necessary for pain control. -Chronic right thigh DVT Xarelto resumed -Acute constipation from pain/decreased activity Laxative as needed -Obesity BMI 30.1 Weight loss measures -Acute postprocedure blood loss anemia expected from surgery ferrous sulfate Discussed with patient. Stable. Follow-up with PCP point discharge. Thank you Dr. Jha
== END 2021-10-19 14:38 | disposition home or self-care (01) ==
LOC: OR 10:51 → 5NMEDONC 17:35 → OR 10-17 08:24
PROVIDERS: ADMIT Orthopaedic Surgery Orthopaedic Surgery of the Spine; ATTEND Orthopaedic Surgery Orthopaedic Surgery of the Spine
DX: M43.17 Spondylolisthesis, lumbosacral region (principal); M51.16 Intervertebral disc disorders with radiculopathy, lumbar region; M79.671 Pain in right foot; R20.0 Anesthesia of skin; D50.0 Iron deficiency anemia secondary to blood loss (chronic); K59.00 Constipation, unspecified; M47.26 Other spondylosis with radiculopathy, lumbar region; Z86.718 Personal history of other venous thrombosis and embolism; Z97.3 Presence of spectacles and contact lenses; E66.9 Obesity, unspecified; Z68.30 Body mass index [BMI] 30.0-30.9, adult; Z98.890 Other specified postprocedural states; Z82.49 Family history of ischemic heart disease and other diseases of the circulatory system; Z79.3 Long term (current) use of hormonal contraceptives; Z79.01 Long term (current) use of anticoagulants; Z79.82 Long term (current) use of aspirin; Z79.891 Long term (current) use of opiate analgesic; Z79.899 Other long term (current) drug therapy; Z88.0 Allergy status to penicillin
CPT/HCPCS: 22853 ×2; 22630; 94760; 97116; 97530 ×2; 97162; 86891; 86900; 86901; 80048; 85025; 86850; 72100; 22632; 20936; G0378 ×3; C1713 ×2; C1762 ×2; J2250; J1644; J0690 ×3; J2405; J3010; J1170 ×4; J0330; J2704; J2001